=== PATIENT | female | born 1950 | race Hispanic/Latino ===

== ENCOUNTER 2021-08-11 14:10 | Inpatient (IN) | payer OTHER ==
[2021-08-11 14:59] LABS: Protime INR 1.34
[2021-08-11 15:01] LABS: Hematocrit 36.9 % (36.0-45.0); Lymphocytes % 9.7 % (15.3-44.8); RBC Red Blood Cell Count 4.25 M/uL (3.86-4.86)
[2021-08-11] MEDS ORDERED: NA CHLORIDE 0.9% 500 ML ONE (15:03)
[2021-08-11 15:17] LABS: Bilirubin Direct 0.5 mg/dL (0-0.2); Bilirubin Total 1.1 mg/dL (0.2-1.0); Magnesium 1.9 mg/dL (1.8-2.4); Potassium 3.7 mmol/L (3.5-5.1); Protein, Total 6.4 g/dL (6.4-8.2); Troponin High Sensitivity 12.1 pg/mL (<58.9)
--- OUTSIDE RECORDS SUMMARY | 2021-08-11 15:41 | XMS REPORT | Continuity of Care Document ---
:[address] [facility] t Address [address] [place] [address] Care Team Providers Name Role Phone Chi EDWARD Primary Care Physician Unavailable GODWIN Attending Clinician Unavailable Payers Payer Name Policy Type Policy Number Effective Date Expiration Date S heather MEDICARE PART A [id number] 2014 \T\ B 00:00:00 MEDICAID OF [place] [id number] 2018 00:00:00 Problems This patient has no known problems. Allergies, Adverse Reactions, Alerts Allergy Allergy Status Severity Reaction(s) Onset Inactive Treating Comm ents Source Name Type Date Date Clinician NO KNOWN Drug Active [facility] ALLERGIE Class it[facility] of [facility] Medications Ordered Filled Start Stop Current Ordering Indication Dosage Frequency Signature Comments Components Source Medication Medication Date Date Medication? Clinician (SIG) Name Name Losartan Losartan Yes Win [address] Potassium Potassium [facility] Carvedilol Carvedilol Yes Win [address] [facility] [place] with [facility] Clopidogrel Clopidogrel Yes Win [address] [facility] Bisulfate Bisulfate [facility] Pravastatin Pravastatin Yes Win [address] [facility] Sodium Sodium [facility] Metformin Metformin Yes Win [address] [facility] HCl HCl [place] [facility] Omeprazole Omeprazole Yes Win [address] [facility] [place] 30 minutes [facility] Procedures This patient has no known procedures. Encounters Start End Encounter Admission Attending Care Care Encounter Source Date/Time Date/Time Type Type Clinicians Facility Department ID 2021-08-22 2021-08-[address] [facility] [id number] Univers 10:30:00 10:30:00 [facility] [id number] [facility] 2021-08-22 2021-08-[address] [facility] [id number] [facility] 10:30:00 10:30:00 [facility] 2021-08-07 2021-08-07 ambulatory [facility] [id number] [facility] 2021-08-07 2021-08-07 ambulatory [facility] [id number] [facility] 2021-07-26 2021-07-26 ambulatory [facility] [id number] [facility] 2021-07-26 2021-07-26 ambulatory [facility] [id number] [facility] 2021-06-12 2021-06-12 ambulatory [facility] [id number] [facility] 2021-04-25 2021-04-25 Outpatient [facility] [id number] [facility] 2021-03-14 2021-03-14 Out[facility] [id number] [facility] 2021-02-16 2021-02-16 Out[facility] [id number] [facility] 2021-01-27 2021-01-27 Outpatient [facility] [id number] [facility] 2021-01-20 2021-01-20 Outpatient [facility] [id number] [facility] 2021-01-02 2021-01-02 Outpatient [facility] [id number] [facility] 2020-12-16 2020-12-16 Outpatient [facility] [id number] [facility] 2020-10-18 2020-10-18 Outpatient [facility] [id number] [facility] 2020-09-20 2020-09-20 Outpatient [facility] [id number] [facility] 2020-09-08 2020-09-08 Outpatient [facility] [id number] [facility] 2020-06-23 2020-06-23 Outpatient [facility] [id number] [facility] 2020-04-04 2020-04-04 [facility] [id number] 15:50[facility] 15:50[facility] [place] [address] [facility] Medicine [facility] Out[facility] Clinics 2020-02-24 2020-02-24 [facility] [id number] 10:30:00 10:30:00 [place] [address] [facility] l Medicine Outpati ent Clinics 2020-02-24 2020-02-24 [facility] [id number] 10:00:00 10:00:[address] [place] [address] [facility] 2020-02-03 2020-02-03 Outpatient Claire Dominguez [id number] 09:39:00 09:39:00 t [employer] [facility] ent Clinics 2020-01-27 2020-01-27 Outpatient Claire Dominguez [id number] 11:31:00 11:31:00 [facility] 2020-01-21 2020-01-21 Outpatient Claire Dominguez [id number] 11:00:00 11:00:00 [facility] Results This patient has no known results.
--- NOTE | 2021-08-11 15:51 | RAD REPORT ---
EXAM DESCRIPTION: CTAbdomen Pelvis W Contrast - 08/11/2021 3:33 pm CLINICAL HISTORY: ABD PAIN COMPARISON: Chest Single View dated 08/11/2021 TECHNIQUE: CT of the abdomen and pelvis was performed. All CT scans are performed using dose optimization technique as appropriate and may include automated exposure control or mA/KV adjustment according to patient size. FINDINGS: Lower chest: Patchy airspace disease within the lung bases. Trace effusions. Coronary dimitrios ry calcifications. Trace pericardial effusion. Small hiatal hernia. Liver: No acute abnormality or suspicious lesions. Biliary: No biliary ductal dilatation. Stomach: No significant focal abnormality. Duodenum: No significant focal abnormality. Pancreas: No significant abnormality. Spleen: No significant abnormality. Adrenal: No suspicious lesions. Kidney/ureter: Bilateral renal sinus cysts. No hydronephrosis. No ureteral calculi. No renal calculi. Retroperitoneum: No retroperitoneal adenopathy. Vascular: Atherosclerosis. Bowel: No significant focal abnormality. Peritoneum: No ascites or free air. Bladder: Grossly unremarkable. Reproductive: No adnexal masses. Bones: No acute fracture. Remote appearing L3 compression fracture with less than 20% loss of height. Sclerotic focus in L4 is likely benign. Bridging osteophytes are present in the spine. Other: n/a IMPRESSION: No acute intra-abdominal or pelvic finding. Patchy nodularity in the lung bases could reflect infection or inflammation, including Covid-19.
--- NOTE | 2021-08-11 15:57 | RAD REPORT ---
EXAM DESCRIPTION: RAD - Chest Single View - 08/11/2021 3:13 pm CLINICAL HISTORY: COUGH COMPARISON: CHEST SINGLE VIEW dated 01/25/2015 FINDINGS: Lines: None. Lungs: Widespread moderate bilateral airspace disease. Pleural: No significant pleural effusions or pneumothorax. Cardiac: Cardiomegaly. Bones: No acute fractures. Other: IMPRESSION: Widespread bilateral airspace disease concerning for multifocal pneumonia, including Cov id-19.
[2021-08-11 18:45] LABS: Blood Morphology Comment NOT SEEN (NOT SEEN); Platelet Estimate ADEQ; White Blood Cell Scan OK (OK)
--- NOTE | 2021-08-11 19:03 | ER ---
Nurse's Notes [facility] Name: Maci Brady Age: 70 yrs Sex: Female : 1950 Arrival Date: 08/11/2021 Time: 14:12 Bed 6 Private MD: Win Oakley Diagnosis: Coronavirus infection, unspecified;Pneumonia due to SARS-associated coronavirus;Abdominal pain, Generalized;Obesity, unspecified;UTI/ Urinary tract infection, site not specified Presentation: 08/11 14:17 Chief complaint: Patient states: Rash, itching, swelling, pain, and possible infection ll1 to vaginal area for 1 week. No fever. Grand daughter states she has been using a towel to clean herself and not wiping well. Coronavirus screen: Client denies travel out of the [place] in the last 14 days. At this time, the client does not indicate any symptoms associated with coronavirus-19. Ebola Screen: Patient denies travel to an Ebola-affected area in the 21 days before illness onset. Initial Sepsis Screen: Does the patient meet any 2 criteria? No. Patient's initial sepsis screen is negative. Does the patient have a suspected source of infection? Yes: Skin breakdown/wound. Risk Assessment: Do you want to hurt yourself or someone else? Patient reports no desire to harm self or others. Onset of symptoms was August 04, 2021. 14:17 Method Of Arrival: Ambulatory 1 14:17 Acuity: SHIRA 3 ll1 Triage Assessment: 15:08 : Reports vaginal bleeding that is none. [facility] Historical: - Allergies: 14:19 No Known Allergies; ll1 - PMHx: 14:19 Diabetes mellitus; Hypercholesterolemia; Hypertensive disorder; ll1 - PSHx: 14:19 hip/knee SX; ll1 - Immunization history:: Client reports receiving the 2nd dose of the Covid vaccine. - Social history:: Smoking status: Patient denies any tobacco usage or history of. - Family history:: not pertinent. Screenin:06 Abuse screen: Denies threats or abuse. Nutritional screening: No deficits noted. 6 Tuberculosis screening: No symptoms or risk factors identified. Fall Risk None identified. Assessment: 15:04 General: Appears in no apparent distress. comfortable, Behavior is calm, cooperative. 6 Pain: Complains of pain in pelvis Pain currently is 2 out of 10 on a pain scale. Quality of pain is described as burning, Pain began 2-3 days ago. 15:07 : redness and irritations noted to groin area Reports pain vaginal itching, since 2-3 jh6 dasy. 20:00 General: Appears in no apparent distress. comfortable, Behavior is calm, cooperative. al4 Neuro: Level of Consciousness is awake, alert, obeys commands, Oriented to person, place, time. Cardiovascular: Capillary refill < 3 seconds Patient's skin is warm and dry. Respiratory: Airway is patent Respiratory effort is even, unlabored, Respiratory pattern is tachypnea. 21:00 General: Appears in no apparent distress. comfortable, Behavior is calm, cooperative. al4 Pain: Complains of pain in abdomen. Neuro: Level of Consciousness is awake, alert, obeys commands, Oriented to person, place, time. Cardiovascular: Capillary refill < 3 seconds Patient's skin is warm and dry. Respiratory: Airway is patent Respiratory effort is even, unlabored, Respiratory pattern is tachypnea. GI: Abdomen is distended. : Reports pain vaginal itching. EENT: No signs and/or symptoms were reported regarding the EENT system. Derm: No signs and/or symptoms reported regarding the dermatologic system. Musculoskeletal: Circulation, motion, and sensation intact. Range of motion: intact in all extremities. 23:00 Reassessment: Patient is alert, oriented x 3, equal unlabored respirations, skin al4 warm/dry/pink. 08/12 01:02 Reassessment: Patient is alert, oriented x 3, equal unlabored respirations, skin al4 warm/dry/pink. Vital Signs: 08/11 14:17 BP 147 / 82; Pulse 99; Resp 18; Temp 97.4; Pulse Ox 92% on R/A; Weight 102.51 kg; ll1 Height 5 ft. 3 in. (160.02 cm); Pain 10/10; 20:20 BP 156 / 85; Pulse 96; Resp 24 S; Pulse Ox 93% ; al4 21:00 BP 151 / 69; Pulse 97; Resp 30; Pulse Ox 92% ; al4 22:00 BP 150 / 75; Pulse 94; Resp 30; Pulse Ox 91% ; al4 08/12 00:58 BP 151 / 90; Pulse 122; Resp 16; Temp 98.4; Pulse Ox 96% on R/A; Pain 3/10; st1 08/11 14:17 Body Mass Index 40.03 (102.51 kg, 160.02 cm) 1 ED Course: 08/11 14:12 Patient arrived in ED. am2 14:13 Win Oakley, DO is Private Physician. am2 14:19 Triage completed. ll1 14:19 Arm band placed on. ll1 14:33 Victor Manuel Castaneda MD is Attending Physician. [facility] 14:46 Isabel Victor, JAYANT is Primary Nurse. jh6 14:46 EKG done, by ED staff, reviewed by Victor Manuel Castaneda MD. mb7 14:46 Inserted saline lock: 20 gauge in right antecubital area, using aseptic technique. tp1 Blood collected. 14:48 Basic Metabolic Panel Sent. tp1 14:48 CBC with Diff Sent. tp1 14:48 Lipase Sent. tp1 15:08 Bed in low position. Call light in reach. Side rails up X 1. Adult w/ patient. jh6 15:13 XRAY Chest (1 view) In Process Unspecified. EDMS 15:33 CT Abd/Pelvis - IV Contrast Only In Process Unspecified. EDMS 19:00 Nikunj Costa MD is Hospitalizing Provider. [facility] 19:36 Héctor Ramirez MD is Hospitalizing Provider. la1 20:11 US Abdomen Limited In Process Unspecified. EDMS 20:55 Blood Culture Adult (2) Sent. st1 20:55 SARS-COV-2 RT PCR (Document "Date of Onset" if Symptomatic) Sent. st1 20:55 Inserted saline lock: 20 gauge in right forearm, using aseptic technique. st1 08/12 00:59 No provider procedures requiring assistance completed. st1 01:02 Patient admitted, IV remains in place. st1 Administered Medications: 08/11 15:04 Drug: NS 0.9% 500 ml Route: IV; Rate: bolus; Site: right antecubital; jh6 23:15 Drug: Flagyl (metroNIDAZOLE) 500 mg Volume: 100 ml; Route: IVPB; Rate: 200 ml/hr; al4 Infused Over: 30 mins; Site: left forearm; 23:15 Drug: Rocephin (cefTRIAXone) 1 grams Route: IV; Rate: per protocol; Site: left forearm; al4 23:15 Drug: Pepcid (famotidine) 20 mg Route: IVP; Site: left forearm; al4 23:16 Drug: levofloxacin 750 mg Volume: 150 ml; Route: IVPB; Infused Over: 90 mins; Site: al4 left forearm; Outcome: 19:02 Decision to Hospitalize by Provider. johnnie 08/12 01:00 Admitted to Tele accompanied by tech, family with patient, via stretcher, room 416, st1 with chart. 01:01 Condition: stable st1 01:01 Instructed on the need for admit, the need for transfer. 01:02 Patient left the ED. st1 Signatures: Dispatcher [employer] EDMS Victor Manuel Castaneda MD MD cha Attema, Lee, CUSTOMER ASSISTANCE REPRESENTATIVE-C CUSTOMER ASSISTANCE REPRESENTATIVE-Cla1 Dary Heredia am2 Pasha Marcos, JAYANT RN 1 Isabel Victor RN RN jh6 Ricarda Watt tp1 Holli Brown mb7 Etienne Walker al4 Sherry Bates, JAYANT RN st1 Corrections: (The following items were deleted from the chart) 01:00 00:59 Admitted to [facility] st
--- NOTE | 2021-08-11 19:03 | EDPHYS ---
Physician Documentation [facility] Name: Maci Brady Age: 70 yrs Sex: Female : 1950 Arrival Date: 08/11/2021 Time: 14:12 Bed 6 Private MD: Adin [facility] ED Physician Victor Manuel Castaneda HPI: 08/11 18:44 This 70 yrs old Female presents to ER via Ambulatory with complaints of johnnie Vaginal Pain, Vaginal Bleeding. 18:44 The patient presents with abdominal distention in the upper abdomen, in the lower johnnie abdomen. Onset: The symptoms/episode began/occurred 5 day(s) ago. The patient presents with vaginal bleeding that is light, PER FAMILY. Onset: The symptoms/episode began/occurred 5 day(s) ago. Modifying factors: The symptoms are alleviated by nothing, the symptoms are aggravated by nothing. Associated signs and symptoms: Pertinent positives: cramping, vaginal bleeding. Severity of symptoms: At their worst the symptoms were mild, moderate, in the emergency department the symptoms are unchanged. The patient is not sexually active. Historical: - Allergies: 14:19 No Known Allergies; ll1 - PMHx: 14:19 Diabetes mellitus; Hypercholesterolemia; Hypertensive disorder; ll1 - PSHx: 14:19 hip/knee SX; ll1 - Immunization history:: Client reports receiving the 2nd dose of the Covid vaccine. - Social history:: Smoking status: Patient denies any tobacco usage or history of. - Family history:: not pertinent. ROS: 18:44 Constitutional: Negative for fever, chills, and weight loss, Eyes: Negative for injury, johnnie pain, redness, and discharge, ENT: Negative for injury, pain, and discharge, Neck: Negative for injury, pain, and swelling, Cardiovascular: Negative for chest pain, palpitations, and edema, Respiratory: Negative for shortness of breath, cough, wheezing, and pleuritic chest pain, Back: Negative for injury and pain, MS/Extremity: Negative for injury and deformity, Skin: Negative for injury, rash, and discoloration, Neuro: Negative for headache, weakness, numbness, tingling, and seizure, Psych: Negative for depression, anxiety, suicide ideation, homicidal ideation, and hallucinations, Allergy/Immunology: Negative for hives, rash, and allergies, Endocrine: Negative for neck swelling, polydipsia, polyuria, polyphagia, and marked weight changes, Hematologic/Lymphatic: Negative for swollen nodes, abnormal bleeding, and unusual bruising. 18:44 Abdomen/GI: Positive for abdominal pain, abdominal cramps, abdominal distension, of the right upper quadrant, left upper quadrant, right lower quadrant and left lower quadrant. Exam: 18:44 Constitutional: This is a well developed, well nourished patient who is awake, alert, johnnie and in no acute distress. Head/Face: Normocephalic, atraumatic. Eyes: Pupils equal round and reactive to light, extra-ocular motions intact. Lids and lashes normal. Conjunctiva and sclera are non-icteric and not injected. Cornea within normal limits. Periorbital areas with no swelling, redness, or edema. ENT: Nares patent. No nasal discharge, no septal abnormalities noted. Tympanic membranes are normal and external auditory canals are clear. Oropharynx with no redness, swelling, or masses, exudates, or evidence of obstruction, uvula midline. Mucous membranes moist. Neck: Trachea midline, no thyromegaly or masses palpated, and no cervical lymphadenopathy. Supple, full range of motion without nuchal rigidity, or vertebral point tenderness. No Meningismus. Chest/axilla: Normal chest wall appearance and motion. Nontender with no deformity. No lesions are appreciated. Cardiovascular: Regular rate and rhythm with a normal S1 and S2. No gallops, murmurs, or rubs. Normal PMI, no JVD. No pulse deficits. Respiratory: Lungs have equal breath sounds bilaterally, clear to auscultation and percussion. No rales, rhonchi or wheezes noted. No increased work of breathing, no retractions or nasal flaring. Back: No spinal tenderness. No costovertebral tenderness. Full range of motion. Female : Normal external genitalia. Skin: Warm, dry with normal turgor. Normal color with no rashes, no lesions, and no evidence of cellulitis. MS/ Extremity: Pulses equal, no cyanosis. Neurovascular intact. Full, normal range of motion. Neuro: Awake and alert, GCS 15, oriented to person, place, time, and situation. Cranial nerves II-XII grossly intact. Motor strength 5/5 in all extremities. Sensory grossly intact. Cerebellar exam normal. Normal gait. Psych: Awake, alert, with orientation to person, place and time. Behavior, mood, and affect are within normal limits. 18:44 ECG was reviewed by the Attending Physician. 18:44 Abdomen/GI: Inspection: distension, Bowel sounds: hyperactive, Palpation: moderate abdominal tenderness, in all quadrants, Rectal exam: is unremarkable, rectal tone normal, Stool: guaiac negative, hemorrhoid(s), are not appreciated, mass, is not appreciated, swelling, is not appreciated, Liver: tenderness, Hernia: not appreciated. 18:44 : CVA tenderness, is absent, Pelvic Exam: External exam: is normal, bimanual exam reveals normal findings, discharge, is not appreciated, the family/significant other was present for the exam, Bladder: is normal, Rectal exam: is normal, no gross blood is appreciated, stool guaiac is negative, no hemorrhoids, no masses palpable, Rectal tone: normal, Perineal sensation Normal Stool: normal, Guaiac testing: results were negative for occult blood, hemorrhoid(s), are not appreciated, mass, is not appreciated, the family/significant other was present for the exam, Sexual behavior: the patient is not sexually active. Vital Signs: 14:17 BP 147 / 82; Pulse 99; Resp 18; Temp 97.4; Pulse Ox 92% on R/A; Weight 102.51 kg; ll1 Height 5 ft. 3 in. (160.02 cm); Pain 10/10; 20:20 BP 156 / 85; Pulse 96; Resp 24 S; Pulse Ox 93% ; al4 21:00 BP 151 / 69; Pulse 97; Resp 30; Pulse Ox 92% ; al4 22:00 BP 150 / 75; Pulse 94; Resp 30; Pulse Ox 91% ; al4 08/12 00:58 BP 151 / 90; Pulse 122; Resp 16; Temp 98.4; Pulse Ox 96% on R/A; Pain 3/10; st1 01 14:17 Body Mass Index 40.03 (102.51 kg, 160.02 cm) ll1 MDM: 08/11 14:33 Patient medically screened. johnnie 18:51 Differential diagnosis: nonspecific abdominal pain, urinary tract infection, bowel johnnie obstruction, cholecystitis, Cholelithiasis, diverticulitis, Irritable bowel syndrome, Mesenteric ischemia or infarction, non-specific abd pain, pancreatitis, Peptic Ulcer Disease, Peritonitis. Data reviewed: vital signs, nurses notes, lab test result(s), EKG, radiologic studies, CT scan, plain films. Data interpreted: professional nurse: rate is 99 beats/min, rhythm is regular, Pulse oximetry: on room air is 92 %. Test interpretation: by ED physician or midlevel provider: ECG, plain radiologic studies. Counseling: I had a detailed discussion with the patient and/or guardian regarding: the historical points, exam findings, and any diagnostic results supporting the discharge/admit diagnosis, lab results, radiology results, the need for further work-up and treatment in the hospital. 08/11 14:29 Order name: Basic Metabolic Panel [facility] 08/11 14:29 Order name: CBC with Diff [facility] 08/11 14:29 Order name: LFT's [facility] 08/11 14:29 Order name: Magnesium; Complete Time: 18:15 [facility] 08/11 14:29 Order name: NT PRO-BNP; Complete Time: 18:15 [facility] 08/11 14:29 Order name: PT-INR; Complete Time: 18:15 [facility] 08/11 14:29 Order name: Troponin HS; Complete Time: 18:15 [facility] 08/11 14:29 Order name: Lipase; Complete Time: 18:15 [facility] 08/11 14:29 Order name: Urine Culture [facility] 08/11 14:29 Order name: Basic Metabolic Panel; Complete Time: 18:15 [facility] 08/11 14:29 Order name: CBC with Automated Diff; Complete Time: 18:59 [facility] 08/11 14:29 Order name: Liver (Hepatic) Function; Complete Time: 18:15 [facility] 08/11 18:16 Order name: SARS-COV-2 RT PCR (Document "Date of Onset" if Symptomatic); Complete Time: [facility] 00:37 08/11 18:44 Order name: Blood Culture Adult (2) [facility] 08/11 14:29 Order name: XRAY Chest (1 view); Complete Time: 18:15 [facility] 08/11 14:29 Order name: EKG; Complete Time: 14:29 [facility] 08/11 14:29 Order name: Cardiac monitoring; Complete Time: 14:46 [facility] 08/11 14:29 Order name: EKG - Nurse/Tech; Complete Time: 14:46 [facility] 08/11 14:29 Order name: IV Saline Lock; Complete Time: 14:47 [facility] 08/11 14:29 Order name: Labs collected and sent; Complete Time: 14:47 [facility] 08/11 14:29 Order name: O2 Per Protocol; Complete Time: 15:00 [facility] 08/11 14:29 Order name: CT Abd/Pelvis - IV Contrast Only; Complete Time: 18:15 [facility] 08/11 18:44 Order name: Lactate; Complete Time: 00:37 [facility] 08/11 18:45 Order name: CBC Smear Scan; Complete Time: 18:59 [facility] 08/11 19:12 Order name: US Abdomen Limited; Complete Time: 00:37 [facility] 08/11 14:29 Order name: O2 Sat Monitoring; Complete Time: 15:00 [facility] 08/11 14:29 Order name: Urine Dipstick-Ancillary (obtain specimen); Complete Time: 15:17 [facility] EC:44 Rate is 98 beats/min. Rhythm is regular. QRS [place] is Normal. VA interval is normal. QRS johnnie interval is normal. QT interval is normal. No Q waves. T waves are Normal. ST Segment is depressed in lead III. Clinical impression: NSR w/ Non-specific ST/T Changes and No evidence of ischemia. Interpreted by me. Reviewed by me. Administered Medications: 15:04 Drug: NS 0.9% 500 ml Route: IV; Rate: bolus; Site: right antecubital; jh6 23:15 Drug: Flagyl (metroNIDAZOLE) 500 mg Volume: 100 ml; Route: IVPB; Rate: 200 ml/hr; al4 Infused Over: 30 mins; Site: left forearm; 23:15 Drug: Rocephin (cefTRIAXone) 1 grams Route: IV; Rate: per protocol; Site: left forearm; al4 23:15 Drug: Pepcid (famotidine) 20 mg Route: IVP; Site: left forearm; al4 23:16 Drug: levofloxacin 750 mg Volume: 150 ml; Route: IVPB; Infused Over: 90 mins; Site: al4 left forearm; Disposition Summary: 08/11/21 19:02 Hospitalization Ordered Hospitalization Status: Observation johnnie [facility] johnnie Condition: Fair johnnie Problem: new johnnie Symptoms: have improved johnnie Bed/Room Type: Standard johnnie Provider: Héctor Ramirez(08/11/21 19:36) la1 Room Assignment: [facility](08/11/21 22:18) cg Diagnosis - Coronavirus infection, unspecified johnnie - Pneumonia due to SARS-associated coronavirus johnnie - Abdominal pain, Generalized johnnie - Obesity, unspecified johnnie - UTI/ Urinary tract infection, site not specified johnnie Forms: - Medication Reconciliation Form johnnie - SBAR form johnnie Signatures: Dispatcher [employer] EDMS Victor Manuel Castaneda MD MD cha Attema, Lee, [employer]-C [employer]-Cla1 Betzy Francois RN RN Pasha Marcos RN RN 1 Isabel Victor RN RN jh6 Etienne Walker Corrections: (The following items were deleted from the chart) 19:36 19:02 Nikunj Costa cha la1 22:18 19:02 johnnie
--- NOTE | 2021-08-11 20:27 | RAD REPORT ---
EXAM DESCRIPTION: US - Abdomen Exam Limited - 08/11/2021 8:10 pm CLINICAL HISTORY: ABD PAIN COMPARISON: Abdomen Pelvis W Contrast dated 08/11/2021 FINDINGS: The gallbladder demonstrates no gallstones. No pericholecystic fluid or gallbladder wall t hickening. The common bile duct is normal measuring 4 mm. The liver demonstrates no findings of intrahepatic biliary dilatation. IMPRESSION: Negative for cholelithiasis or acute cholecystitis. No biliary ductal dilatation.
--- NOTE | 2021-08-11 20:34 | P.HP ---
Certification for Inpatient Patient admitted to: Observation With expected LOS: <2 Midnights Patient will require the following post-hospital care: None Practitioner: I am a practitioner with admitting privileges, knowledge of patient current condition, hospital course, and medical plan of care. Services: Services provided to patient in accordance with Admission requirements found in Title 42 Section 412.3 of the Code of Federal Regulations Patient History Date of Service: 08/11/21 Primary Care Provider: Dr. Oakley Reason for admission: Epigastric pain History of Present Illness: 70-year-old female with history of hypertension, diabetes most likely does not insulin-dependent, hyperlipidemia presents emergency room for epigastric pain. Patient reports that she has been having pain for approximate last 5 days with some nausea as well. Patient also with dysuria. Patient was evaluated in the emergency department labs were significant for white blood cell count 10.10 with some left shift GFR 47 glucose 118 BNP 2241 COVID test pending urinalysis shows UTI. CT abdomen pelvis with IV contrast shows no acute intra- abdominal or pelvic findings with patchy nodularity in the lung bases which could reflect infection/inflammation or COVID-19. Abdominal ultrasound negative for cholelithiasis or acute cholecystitis no biliary ductal dilatation. Upon review of patient medications I did note that she takes ibuprofen 3 to 4 days a week twice daily 600 to 800 mg each dose. Patient with moderate epigastric tenderness on exam, ED provider wishes to admit under observation for serial abdominal exams and surgical consult. Allergies No Known Drug Allergies Allergy (Verified 02/02/15 14:00) Unknown Home Medications: Aspirin 81 mg PO DAILY 01/25/15 Carvedilol [Coreg] 12.5 mg PO BID 01/25/15 Cilostazol [Pletal] 50 mg PO BID 01/25/15 Clopidogrel Bisulfate [Plavix*] 75 mg PO DAILY 01/25/15 Esomeprazole Mag Trihydrate [Nexium] 40 mg PO DAILY 01/25/15 Losartan Potassium [Cozaar] 100 mg PO DAILY 01/25/15 Metformin ER [Glucophage ER*] 500 mg PO DAILY 01/25/15 Rosuvastatin Calcium [Crestor] 40 mg PO DAILY 01/25/15 Tramadol HCl [Ultram] 50 mg PO QID PRN #30 tablet 02/18/15 - Past Medical/Surgical History Diabetic: Yes -: Diabetes type [id number] -: htn -: h/o cad -: Hyperlipidemia -: c section Psychosocial/ Personal History: Patient lives at home with family - Family History Father -: Heart disease - Social History Smoking Status: Never smoker Alcohol use: No CD- Drugs: No Caffeine use: Yes Place of Residence: Home Review of Systems 10-point ROS is otherwise unremarkable Gastrointestinal: Nausea, Abdominal Pain Genitourinary: Dysuria Physical Examination - Physical Exam General: Alert, In no apparent distress, Oriented x3 HEENT: Atraumatic, PERRLA, Mucous membr. moist/pink, EOMI, Sclerae nonicteric Neck: Supple, 2+ carotid pulse no bruit, No LAD, Without JVD or thyroid abnormality Respiratory: Clear to auscultation bilaterally, Normal air movement Cardiovascular: Regular rate/rhythm, Normal S1 S2 Capillary refill: <2 Seconds Gastrointestinal: No masses, No rebound, No guarding, Tenderness (Moderate epigastric tenderness) Musculoskeletal: No tenderness Integumentary: No rashes Neurological: Normal speech, Normal strength at 5/5 x4 extr, Normal tone, Normal affect Lymphatics: No axilla or inguinal lymphadenopathy - Studies Laboratory Data (last 24 hrs) 08/11/21 14:40: PT 15.4 H, INR 1.34 08/11/21 14:40: WBC 10.10, Hgb 12.1, Hct 36.9, Plt Count 196 08/11/21 14:40: Sodium 140, Potassium 3.7, BUN 17, Creatinine 1.14, Glucose 118 H, Magnesium 1.9, Total Bilirubin 1.1 H, AST 19, ALT 17, Alkaline Phosphatase 98, Lipase 151 Assessment and Plan - Plan Assessment: Epigastric pain UTI Hypertension Diabetes mellitus type [id number] Hyperlipidemia Plan: Epigastric pain: Clear liquids, ultrasound negative for acute cholecystitis, CT abdomen unremarkable. Patient does report taking ibuprofen 3-4 times a week twice daily 600 800 mg. Suspect possible PUD., Twice daily IV Protonix, advance diet as tolerated. Continue antibiotics for UTI we will also add Flagyl for possible GI coverage given acute epigastric pain. Surgical consult placed plans on seeing patient this evening. UTI: Continue Rocephin, urine culture obtained. Hypertension: Obtain and continue medications Diabetes mellitus type [id number]: ACHS Accu-Chek, sliding scale insulin Hyperlipidemia: Obtain and continue home medications. DVT PPX: Lovenox Code status: Full Discharge Plan: Home Plan to discharge in: 24 Hours - Advance Directives Does patient have a Living Will: No Does patient have a Durable POA for Healthcare: No - Code Status/Comfort Care Code Status Assessed: Yes (Full code) Critical Care: No Time Spent Managing Pts Care (In Minutes): 55
[2021-08-11] MEDS ORDERED: Levofloxacin 750mg IV 750 MG/150 ML BAG IV ONE (21:47)
[2021-08-11] MEDS ORDERED: FAMOTIDINE 20 MG/2 ML VIAL IV ONE (21:47)
[2021-08-11] MEDS ORDERED: METRONIDAZOLE 500mg IVPB 500 MG/100 ML BAG IV ONE (21:48)
[2021-08-11] MEDS ORDERED: CEFTRIAXONE 1000 MG/VIAL ONE (22:17)
[2021-08-12] MEDS ORDERED: ONDANSETRON 4 MG/2 ML VIAL IV PRN (01:20)
[2021-08-12] MEDS: INSULIN -REGULAR HUMAN 50 UNIT/0.5 ML ML SQ SCH ×5 (01:20→21:57)
[2021-08-12] MEDS ORDERED: BENZONATATE 100 MG CAP PO PRN (01:20)
[2021-08-12] MEDS ORDERED: SODIUM CHLORIDE 0.9% 10ML INJ IV PRN (01:20)
[2021-08-12] MEDS ORDERED: NA CHLORIDE 0.9% 1,000 ML IV SCH (01:20)
[2021-08-12] MEDS ORDERED: ACETAMINOPHEN 500 MG TAB PO PRN (01:20)
[2021-08-12 01:37] VITALS: BMI 39.3
[2021-08-12] MEDS: PANTOPRAZOLE 40 MG INJ IVP SCH ×2 (02:12→09:25)
[2021-08-12] MEDS: METRONIDAZOLE 500mg IVPB 500 MG/100 ML BAG IV SCH ×2 (02:43→09:24)
[2021-08-12 04:08] LABS: Absolute Lymphocytes (CBC) 0.7 K/uL (0.7-4.9); Hematocrit 36.9 % (36.0-45.0); Lymphocytes % 6.9 % (15.3-44.8); MPV 10.6 fL (7.6-11.3); RBC Red Blood Cell Count 4.25 M/uL (3.86-4.86)
[2021-08-12 04:12] LABS: Albumin 1.9 g/dL (3.4-5.0); Bilirubin Total 1.1 mg/dL (0.2-1.0); Ferritin 143.3 ng/mL (8-388); Potassium 3.9 mmol/L (3.5-5.1); Protein, Total 6.4 g/dL (6.4-8.2); Thyroid Stimulating Hormone 2.28 uIU/mL (0.360-3.740)
[2021-08-12 04:27] LABS: Anisocytosis 1+; Blood Morphology Comment NOTED (NOT SEEN); Platelet Estimate ADEQ; Platelets, Giant MOD; White Blood Cell Scan OK (OK)
[2021-08-12 04:28] LABS: Burr Cells 1+; Hypochromasia 1+; Macrocytosis 1+; Ovalocytes 2+; Poikilocytosis 1+; Polychromasia SLIGHT; Teardrop Cell 2+
[2021-08-12] MEDS ORDERED: METHYLPREDNISOLONE 40 MG INJ IV SCH (09:00)
[2021-08-12] MEDS: ENOXAPARIN 40 MG/0.4 ML SQ SCH (09:24)
[2021-08-12] MEDS: CEFTRIAXONE 1,000 MG in NA CHLORIDE 0.9% 50 ML IVPB SCH (09:24)
--- NOTE | 2021-08-12 11:17 | P.CNS ---
Date of Consult: 08/12/21 Reason for Consult: Coronavirus pneumonia Primary Care Provider: Dr. Oakley Chief Complaint: Epigastric pain History of Present Illness: Patient is 70 years of age with metabolic syndrome admitted with epigastric pain been present for the past 5 days also complaining of urinary tract symptoms he has had COVID and also been vaccinated as per daughter denies any shortness of breath no acute findings on the CT of the abdomen she does have significant interstitial changes suggestive of coronavirus pneumonia some epigastric tenderness Allergies No Known Drug Allergies Allergy (Verified 02/02/15 14:00) Unknown Home Medications: Aspirin 81 mg PO DAILY 01/25/15 Carvedilol [Coreg] 12.5 mg PO BID 01/25/15 Cilostazol [Pletal] 50 mg PO BID 01/25/15 Clopidogrel Bisulfate [Plavix*] 75 mg PO DAILY 01/25/15 Esomeprazole Mag Trihydrate [Nexium] 40 mg PO DAILY 01/25/15 Losartan Potassium [Cozaar] 100 mg PO DAILY 01/25/15 Metformin ER [Glucophage ER*] 500 mg PO DAILY 01/25/15 Rosuvastatin Calcium [Crestor] 40 mg PO DAILY 01/25/15 Tramadol HCl [Ultram] 50 mg PO QID PRN #30 tablet 02/18/15 - Past Medical/Surgical History Diabetic: Yes -: Diabetes type [id number] -: htn -: h/o cad -: Hyperlipidemia -: COVID infection -: c section Psychosocial/ Personal History: Patient lives at home with family - Family History Father Medical History: Heart disease - Social History Alcohol use: No CD- Drugs: No Caffeine use: Yes Place of Residence: Home Review of Systems is unable to be obtained Physical Examination Temp Pulse Resp BP Pulse Ox 99.2 F 111 H 20 161/69 H 91 08/12/21 08:00 08/12/21 08:00 08/12/21 08:00 08/12/21 08:00 08/12/21 08:00 General: Alert Respiratory: Clear to auscultation bilaterally, Diminished Cardiovascular: No edema, Normal S1 S2 Laboratory Data (last 24 hrs) 08/11/21 14:40: PT 15.4 H, INR 1.34 08/11/21 14:40: WBC 10.10, Hgb 12.1, Hct 36.9, Plt Count 196 08/11/21 14:40: Sodium 140, Potassium 3.7, BUN 17, Creatinine 1.14, Glucose 118 H, Magnesium 1.9, Total Bilirubin 1.1 H, AST 19, ALT 17, Alkaline Phosphatase 98, Lipase 151 - Problems (1) Pneumonia due to coronavirus disease 2018 Current Visit: Yes Status: Acute Plan: Patient is 70 years of age admitted with epigastric pain she has interstitial changes consistent with COVID-pneumonia also positive for COVID patient is hypoxic currently she has had COVID recently also been vaccinated labs chemistries reviewed no acute findings on CT abdomen reduce dose of Solu-Medrol to 40 IV twice daily home oxygen has been ordered evaluate for discharge possibly tomorrow changed to p.o. pantoprazole
[2021-08-12] MEDS ORDERED: FUROSEMIDE 40 MG/4 ML VIAL IV ONE (11:36)
--- NOTE | 2021-08-12 11:36 | P.PN ---
Subjective Date of Service: 08/12/21 Primary Care Provider: Dr. Oakley Chief Complaint: Epigastric pain Subjective: No new changes (seen with daughter -still c/o of lowerabominal pain but no dysuria) Physical Examination - Vital Signs Temperature: 99.2 F Blood Pressure: 161/69 Pulse: 111 Respirations: 20 Pulse Ox (%): 91 - Studies Laboratory Data (last 24 hrs) 08/11/21 14:40: PT 15.4 H, INR 1.34 08/11/21 14:40: WBC 10.10, Hgb 12.1, Hct 36.9, Plt Count 196 08/11/21 14:40: Sodium 140, Potassium 3.7, BUN 17, Creatinine 1.14, Glucose 118 H, Magnesium 1.9, Total Bilirubin 1.1 H, AST 19, ALT 17, Alkaline Phosphatase 98, Lipase 151 Assessment And Plan Physician Review Additional Text: - Physical Exam General: Alert, In no apparent distress, Oriented x3 HEENT: Atraumatic, PERRLA, Mucous membr. moist/pink, EOMI, Sclerae nonicteric Neck: Supple, 2+ carotid pulse no bruit, No LAD, Without JVD or thyroid abnormality Respiratory: Clear to auscultation bilaterally, Normal air movement Cardiovascular: Regular rate/rhythm, Normal S1 S2 Capillary refill: <2 Seconds Gastrointestinal: No masses, No rebound, No guarding, Tenderness (Moderate epigastric tenderness) Musculoskeletal: No tenderness Integumentary: No rashes Neurological: Normal speech, Normal strength at 5/5 x4 extr, Normal tone, Normal affect Lymphatics: No axilla or inguinal lymphadenopathy Assessment and Plan Epigastric pain UTI Hypertension Diabetes mellitus type [id number] Hyperlipidemia Presumed UTI Plan: Epigastric pain: Possibly due to ibuprofen induced gastritis Continue Protonix twice daily Follow urinalysis for rule out UTI On Flagyl for possible GI infection, will DC for now since CT scan unremarkable -ultrasound negative for acute cholecystitis, UTI: Continue Rocephin, follow urine culture obtained. Hypertension: Resume home regimen, may need adjustment Diabetes mellitus type [id number]: ACHS Accu-Chek, sliding scale insulin Hyperlipidemia: Obtain and continue home medications. COVID-pneumonia statuson 2 L nasal cannula now, appreciate pulmonary consult Started on IV steroids, plan for discharge in a.m. if weaning down O2 DVT PPX: Lovenox Code status: Full Discharge Plan: Home Plan to discharge in: 24-48 Hours Code Status Assessed: Yes (Full code)
[2021-08-12] MEDS ORDERED: NA CHLORIDE 0.9% 1,000 ML ONE (12:28)
[2021-08-12] MEDS: carvediloL 12.5 MG TAB PO SCH ×2 (12:33→17:04)
[2021-08-12] MEDS: PANTOPRAZOLE 40MG TABLET PO SCH (17:05)
[2021-08-12 20:06] LABS: Urine Appearance CLEAR (Clear); Urine Bilirubin NEGATIVE (Negative); Urine Blood NEGATIVE (Negative); Urine Color YELLOW (Yellow); Urine Glucose NEGATIVE (Negative); Urine Protein NEGATIVE (Negative); Urine Specific Gravity <=1.005 (1.005-1.030); Urine Urobilinogen 0.2 mg/dL (0.2-1.0); Urine pH 5.5 (5.0-7.0)
[2021-08-12 20:07] LABS: Urine Microscopic Reflex NO UMIC
[2021-08-12] MEDS: ROSUVASTATIN 10 MG TAB PO SCH (21:53)
[2021-08-12] MEDS: METHYLPREDNISOLONE 40 MG INJ IV SCH (21:53)
[2021-08-13 03:29] LABS: Absolute Lymphocytes (CBC) 0.5 K/uL (0.7-4.9); Lymphocytes % 6.7 % (15.3-44.8); MPV 11.1 fL (7.6-11.3); RBC Red Blood Cell Count 3.96 M/uL (3.86-4.86)
[2021-08-13 04:08] LABS: Albumin 2.1 g/dL (3.4-5.0); Bilirubin Total 0.9 mg/dL (0.2-1.0); Ferritin 192.4 ng/mL (8-388); Potassium 3.8 mmol/L (3.5-5.1); Protein, Total 6.4 g/dL (6.4-8.2)
[2021-08-13 04:13] LABS: Platelet Estimate ADEQ; White Blood Cell Scan OK (OK)
[2021-08-13 04:14] LABS: Anisocytosis 1+; Blood Morphology Comment NOTED (NOT SEEN); Burr Cells 1+; Elliptocytes 1+; Hypochromasia 1+; Macrocytosis 2+; Ovalocytes 1+; Platelets, Giant MOD; Poikilocytosis 1+; Teardrop Cell 1+
[2021-08-13] MEDS: carvediloL 12.5 MG TAB PO SCH ×2 (05:43→17:09)
[2021-08-13] MEDS: INSULIN -REGULAR HUMAN 50 UNIT/0.5 ML ML SQ SCH ×4 (07:30→20:51)
[2021-08-13] MEDS: ENOXAPARIN 40 MG/0.4 ML SQ SCH (08:20)
[2021-08-13] MEDS: LOSARTAN POTASSIUM 50 MG TABLET PO SCH (08:20)
[2021-08-13] MEDS: PANTOPRAZOLE 40MG TABLET PO SCH ×2 (08:20→16:06)
[2021-08-13] MEDS: ASPIRIN 81 MG CHEWABLE TABLET PO SCH (08:20)
[2021-08-13] MEDS: METFORMIN ER 500 MG TAB PO SCH (08:20)
[2021-08-13] MEDS: CLOPIDOGREL 75 MG TABLET PO SCH (08:20)
[2021-08-13] MEDS: METHYLPREDNISOLONE 40 MG INJ IV SCH ×2 (08:21→20:50)
[2021-08-13] MEDS: CEFTRIAXONE 1,000 MG in NA CHLORIDE 0.9% 50 ML IVPB SCH (08:22)
[2021-08-13] MEDS ORDERED: HOME MED 1 EA UNK (Losartan Potassium [Cozaar] 100 MG Tablet) PO SCH (09:00)
[2021-08-13] MEDS ORDERED: POTASSIUM CL SA 10 MEQ TAB PO ONE (09:00)
[2021-08-13] MEDS ORDERED: HOME MED 1 EA UNK (Rosuvastatin Calcium [Crestor] 40 MG Tablet) PO SCH (09:00)
--- NOTE | 2021-08-13 10:19 | P.PN ---
Subjective Date of Service: 08/13/21 Primary Care Provider: Dr. Oakley Chief Complaint: Epigastric pain Subjective: No new changes, No C/O voiced Physical Examination - Vital Signs Temperature: 97.4 F Blood Pressure: 128/60 Pulse: 82 Respirations: 18 Pulse Ox (%): 91 Assessment And Plan Physician Review Additional Text: Bones: No acute fracture. Remote appearing L3 compression fracture with less than 20% loss of height. Sclerotic focus in L4 is likely benign. Bridging osteophytes are present in the spine. Other: n/a IMPRESSION: No acute intra-abdominal or pelvic finding. Patchy nodularity in the lung bases could reflect infection or inflammation, including Covid-19. Physical Exam General: Alert, In no apparent distress, Oriented x3 HEENT: Atraumatic, PERRLA, Mucous membr. moist/pink, EOMI, Sclerae non-icteric Neck: Supple, 2+ carotid pulse no bruit, No LAD, Without JVD or thyroid abnormality Respiratory: Clear to auscultation bilaterally, Normal air movement Cardiovascular: Regular rate/rhythm, Normal S1 S2 Capillary refill: <2 Seconds Gastrointestinal: No masses, No rebound, No guarding, no tenderness Musculoskeletal: No tenderness, no ulcer Integumentary: No rashes, Neurological: Normal speech, Normal strength at 5/5 x4 extr, Normal tone, Normal affect Lymphatics: No axilla or inguinal lymphadenopathy Assessment and Plan Epigastric pain Covid pneumonia Hypertension Diabetes mellitus type [id number] Hyperlipidemia Presumed UTI -resolved Plan: Epigastric pain: due to covid gastritis Continue Protonix twice daily dc Flagyl since no evidence of GI infection -ultrasound negative for acute cholecystitis, UTI: Continue Rocephin, follow urine culture obtained Hypertension: Resume home regimen, may need adjustment Diabetes mellitus type [id number]: Accu-Chek, sliding scale insulin Hyperlipidemia: Obtain and continue home medications. COVID-pneumonia status on 2 L nasal cannula now, Appreciate pulmonary consult Started on IV steroids Weakness - pt requesting assist at home , will need home health DVT PPX: Lovenox Code status: Full Discharge Plan: SNF Plan to discharge in: 24-48 Hours Code Status Assessed: Yes (Full code) Time Spent Managing PTS Care (In Minutes): 35
[2021-08-13] MEDS: ROSUVASTATIN 10 MG TAB PO SCH (20:51)
[2021-08-14 03:25] LABS: Absolute Lymphocytes (CBC) 0.4 K/uL (0.7-4.9); Hematocrit 33.4 % (36.0-45.0); MPV 11.8 fL (7.6-11.3); RBC Red Blood Cell Count 3.92 M/uL (3.86-4.86)
[2021-08-14 03:59] LABS: Albumin 1.9 g/dL (3.4-5.0); Bilirubin Total 0.5 mg/dL (0.2-1.0); Ferritin 184.2 ng/mL (8-388); Potassium 4.3 mmol/L (3.5-5.1); Protein, Total 5.9 g/dL (6.4-8.2)
[2021-08-14 04:08] LABS: Blood Morphology Comment NOTED (NOT SEEN); Burr Cells 3+; Platelet Estimate ADEQ
[2021-08-14] MEDS: carvediloL 12.5 MG TAB PO SCH ×2 (05:15→17:09)
[2021-08-14 05:51] VITALS: O2SAT 91
[2021-08-14] MEDS: INSULIN -REGULAR HUMAN 50 UNIT/0.5 ML ML SQ SCH ×3 (07:30→17:09)
[2021-08-14] MEDS: METHYLPREDNISOLONE 40 MG INJ IV SCH (08:11)
[2021-08-14] MEDS: LOSARTAN POTASSIUM 50 MG TABLET PO SCH (08:11)
[2021-08-14] MEDS: PANTOPRAZOLE 40MG TABLET PO SCH ×2 (08:11→17:09)
[2021-08-14] MEDS: CLOPIDOGREL 75 MG TABLET PO SCH (08:11)
[2021-08-14] MEDS: METFORMIN ER 500 MG TAB PO SCH (08:11)
[2021-08-14] MEDS: CEFTRIAXONE 1,000 MG in NA CHLORIDE 0.9% 50 ML IVPB SCH (08:11)
[2021-08-14] MEDS: ASPIRIN 81 MG CHEWABLE TABLET PO SCH (08:11)
[2021-08-14] MEDS: ENOXAPARIN 40 MG/0.4 ML SQ SCH (08:11)
[2021-08-14 08:46] LABS: Urine Blood Negative (Negative); Urine Glucose Trace (Negative); Urine Protein 2+ (Negative); Urine Specific Gravity >=1.030 (1.005-1.030)
--- NOTE | 2021-08-14 10:18 | P.PN ---
Date of Service: 08/14/21 Subjective Subjective: No new changes, No C/O voiced Physical Examination - Vital Signs Reviewed Physical Exam General: Alert, In no apparent distress, Oriented x3 Respiratory: Clear to auscultation bilaterally, Normal air movement Cardiovascular: Regular rate/rhythm, Normal S1 S2 Gastrointestinal: No masses, No rebound, No guarding, no tenderness Musculoskeletal: No tenderness, no ulcer Neurological: No focal deficits Assessment and Plan Epigastric pain Covid pneumonia Hypertension Diabetes mellitus type [id number] Hyperlipidemia Presumed UTI -resolved Plan: Epigastric pain: due to covid gastritis Continue Protonix twice daily UTI: Continue Rocephin, follow urine culture obtained Hypertension: Resume home regimen, may need adjustment Diabetes mellitus type [id number]: Accu-Chek, sliding scale insulin Hyperlipidemia: Obtain and continue home medications. COVID-pneumonia status on 2 L nasal cannula now, Appreciate pulmonary consult Started on IV steroids Weakness - pt requesting assist at home , will need home health DVT PPX: Lovenox Code status: Full Discharge Plan: SNF Plan to discharge in: 24-48 Hours Code Status Assessed: Yes (Full code) Time Spent Managing PTS Care (In Minutes): 35
[2021-08-14 14:42] VITALS: BP 117/56; TEMP 97.5
--- NOTE | 2021-08-14 15:15 | P.DS ---
Discharge Date: 08/14/21 Primary Care Provider: Dr. Oakley Disposition: ROUTINE DISCHARGE Discharge Condition: GOOD Reason for Admission: Epigastric pain Brief History of Present Illness: 70-year-old female with history of hypertension, diabetes most likely does not insulin-dependent, hyperlipidemia presents emergency room for epigastric pain. Patient reports that she has been having pain for approximate last 5 days with some nausea as well. Patient also with dysuria. Patient was evaluated in the emergency department labs were significant for white blood cell count 10.10 with some left shift GFR 47 glucose 118 BNP 2241 COVID test pending urinalysis shows UTI. CT abdomen pelvis with IV contrast shows no acute intra- abdominal or pelvic findings with patchy nodularity in the lung bases which could reflect infection/inflammation or COVID-19. Abdominal ultrasound negative for cholelithiasis or acute cholecystitis no biliary ductal dilatation. Upon review of patient medications I did note that she takes ibuprofen 3 to 4 days a week twice daily 600 to 800 mg each dose. Patient with moderate epigastric tenderness on exam, ED provider wishes to admit under observation for serial abdominal exams and surgical consult. Hospital Course: Patient has done well during hospitalization. Patient was positive for Covid- 19. Patient clinical symptoms are improved. Patient is back to baseline and 1 to go home. Spoke with patient with family at bedside. Plan is to discharge patient home on Protonix Vital Signs/Physical Exam: Temp Pulse Resp BP Pulse Ox 97.5 F 94 H 18 117/56 L 94 08/14/21 12:00 08/14/21 12:00 08/14/21 12:00 08/14/21 12:00 08/14/21 12:00 General: Alert, In no apparent distress, Oriented x3 Laboratory Data at Discharge: WBC 7.60 K/uL (4.3-10.9) 08/14/21 03:01 Hgb 11.2 g/dL (12.0-15.0) L 08/14/21 03:01 Hct 33.4 % (36.0-45.0) L 08/14/21 03:01 Plt Count 184 K/uL (152-406) 08/14/21 03:01 PT 15.4 SECONDS (9.5-12.5) H 08/11/21 14:40 INR 1.34 08/11/21 14:40 Sodium 138 mmol/L (136-145) 08/14/21 03:01 Potassium 4.3 mmol/L (3.5-5.1) 08/14/21 03:01 BUN 26 mg/dL (7-18) H 08/14/21 03:01 Creatinine 1.10 mg/dL (0.55-1.3) 08/14/21 03:01 Glucose 172 mg/dL (74-106) H 08/14/21 03:01 Magnesium 1.9 mg/dL (1.8-2.4) 08/11/21 14:40 Total Bilirubin 0.5 mg/dL (0.2-1.0) 08/14/21 03:01 AST 26 U/L (15-37) 08/14/21 03:01 ALT 22 U/L (12-78) 08/14/21 03:01 Alkaline Phosphatase 83 U/L (45-117) 08/14/21 03:01 Triglycerides 62 mg/dL (<150) 08/12/21 03:12 Cholesterol 193 mg/dL (<200) 08/12/21 03:12 HDL Cholesterol 114 mg/dL (40-60) H 08/12/21 03:12 Cholesterol/HDL Ratio 1.69 08/12/21 03:12 Lipase 151 U/L (73-393) 08/11/21 14:40 Home Medications: Aspirin 81 mg PO DAILY 01/25/15 Carvedilol [Coreg] 12.5 mg PO BID 01/25/15 Cilostazol [Pletal] 50 mg PO BID 01/25/15 Clopidogrel Bisulfate [Plavix*] 75 mg PO DAILY 01/25/15 Esomeprazole Mag Trihydrate [Nexium] 40 mg PO DAILY 01/25/15 Losartan Potassium [Cozaar] 100 mg PO DAILY 01/25/15 Metformin ER [Glucophage ER*] 500 mg PO DAILY 01/25/15 Rosuvastatin Calcium [Crestor] 40 mg PO DAILY 01/25/15 Tramadol HCl [Ultram] 50 mg PO QID PRN #30 tablet 02/18/15 Physician Discharge Instructions: -DC IV and DC home -Follow-up with PCP in 1 to 2 weeks -Follow-up with Gastroenterology in 1 to 2 weeks -Please call Dr. Steiner at [phone] if any questions regarding hospital stay -Please call nursing station at [phone] if any nursing or medication questions -Return to the emergency room if symptoms worsen Diet: ADA Activity: Fall precautions Followup: Win Oakley, [Primary Care Provider] - Time spent managing pt's care (in minutes): 35
== END 2021-08-14 17:30 | disposition home or self-care (01) | DRG 177 ==
LOC: ER 14:10 → ERHOLD 20:23 → 4TH 08-12 00:49 → OBSVTOIN 08-12 01:20
PROVIDERS: ADMIT Internal Medicine; ATTEND Internal Medicine
DX: U07.1 COVID-19 (principal); J12.82 Pneumonia due to coronavirus disease 2019; J96.01 Acute respiratory failure with hypoxia; N39.0 Urinary tract infection, site not specified; A08.39 Other viral enteritis; I10 Essential (primary) hypertension; E11.9 Type 2 diabetes mellitus without complications; E78.5 Hyperlipidemia, unspecified
CPT/HCPCS: 36415; 71045; 74177; 76705; 80048; 80053; 80061; 80076; 81003; 82728; 82947; 83605; 83690; 83735; 83880; 84439; 84443; 84484; 85025; 85379; 85610; 86140; 87040; 87077; 87086; 87088; 87186; 93005; 96374; 96375; 99285; C9113; G0378; J1650; J1940; J2920; J7030; J7040; Q9967; U0003

== ENCOUNTER → 2023-03-20 | Day surgery (SDC) | payer OTHER ==
--- NOTE | 2023-03-20 14:32 | RAD REPORT ---
EXAM DESCRIPTION: US - Guided FNA Non Breast - 03/20/2023 9:04 am CLINICAL HISTORY: K11.8 COMPARISON: Extremity Nonvascular Limited dated 01/02/2019 FINDINGS: Preoperative diagnosis: Right parotid mass. Post operative diagnosis: Same. Conscious Sedation: None Fluoroscopy time: None Contrast used: None Estimated blood loss: Minimal Specimens:Fine needle aspiration samples as below The right upper neck was prepped and draped in the usual sterile fashion. 1% lidocaine was infiltrate d into the subcutaneous tissues for local anesthesia. Real time ultrasound scanning of the superficia l right parotid lobe demonstrated a lobulated hypoechoic mass measuring up to 3.7 cm in greatest dime nsion. Under ultrasound guidance, using under source min total of 25 gauge and 22 gauge needles, 5 fi ne needle aspiration/biopsy specimens were obtained of this lesion and sent to pathology for evaluati on, in CytoRich medium. There were no complications. The patient tolerated the procedure well. IMPRESSION: Successful right parotid mass ultrasound-guided fine-needle aspiration/ biopsy as above.
== END ==
LOC: FNA 08:29
PROVIDERS: ATTEND Family Medicine
PROC: 0CBJ3ZX Excision of Minor Salivary Gland, Percutaneous Approach, Diagnostic (ICD-10-PCS; principal; 2023-03-20)
DX: D37.030 Neoplasm of uncertain behavior of the parotid salivary glands (principal)
CPT/HCPCS: 88162